=== PATIENT | male | born 1985 | race African-American/Black ===

== ENCOUNTER 2020-10-09 07:00 | Emergency (ER) | payer MEDICAID ==
[~2020-10-09] VITALS: Ht 182.9 cm; Wt 73.0 kg
[2020-10-09] MEDS ORDERED: MORPHINE SULFATE 2 MG/ML CPJ (NOT FOR IM USE) IV ONE (07:45)
[2020-10-09] MEDS ORDERED: ACETAMINOPHEN 325MG TABLET PO ONE (07:45)
[2020-10-09] MEDS ORDERED: ONDANSETRON HCL 4MG/2ML INJ IV ONE (08:00)
[2020-10-09 09:07] LABS: BASOPHILS % 0.3 % (0.0-2.0); EOSINOPHILS % 0.1 % (0.0-5.0); HEMATOCRIT. 37.2 % (42.0-52.0); LYMPHOCYTES % 12.8 % (20.0-50.0); MEAN CORPUSCULAR HEMOGLOBIN 31.8 pg (28.0-32.0); MEAN CORPUSCULAR VOLUME 91.3 fL (80.0-94.0); MEAN PLATELET VOLUME 8.4 fl (7.4-10.4); MONOCYTES % 10.5 % (2.0-8.0); NEUTROPHILS % 76.3 % (40.0-76.0); PLATELET 270 x1000/uL (130-400); RED BLOOD CELL COUNT 4.08 mill/uL (4.7-6.1); RED CELL DISTRIBUTION WIDTH 13.4 % (11.6-14.6)
[2020-10-09 09:08] LABS: CHLORIDE 102 mEq/L (98-107)
[2020-10-09 09:16] LABS: INR 1.6; PROTHROMBIN TIME 16.5 sec (9.6-11.0)
[2020-10-09] MEDS ORDERED: HYDROCODONE/ACETAMINOPHEN 5/325MG TABLET PO ONE (09:30)
[2020-10-09] MEDS ORDERED: IOHEXOL-300 100 ML BOTTLE ONE (10:12)
[2020-10-09 11:17] VITALS: BP 111/65
== END 2020-10-09 11:39 | disposition home or self-care (01) ==
LOC: ER 07:25
DX: S22.42XA Multiple fractures of ribs, left side, initial encounter for closed fracture (principal); S27.9XXA Injury of unspecified intrathoracic organ, initial encounter; S00.83XA Contusion of other part of head, initial encounter; S50.01XA Contusion of right elbow, initial encounter; F17.200 Nicotine dependence, unspecified, uncomplicated; R10.84 Generalized abdominal pain; R42 Dizziness and giddiness; Y04.0XXA Assault by unarmed brawl or fight, initial encounter; Y93.89 Activity, other specified; Y92.89 Other specified places as the place of occurrence of the external cause; Y99.8 Other external cause status
CPT/HCPCS: 36415; 70450; 70486; 71101; 74177; 80053; 83690; 85025; 85610; 99285; Q9967

== ENCOUNTER 2021-01-23 08:50 | Emergency (ER) | payer SELFPAY ==
[~2021-01-23] VITALS: Ht 182.9 cm; Wt 72.0 kg
[2021-01-23 08:56] VITALS: BP 109/46
== END 2021-01-23 09:55 | disposition home or self-care (01) ==
LOC: ER 08:50 → EDSEX 08:50 → ER 09:55
DX: Z48.02 Encounter for removal of sutures (principal)
CPT/HCPCS: 99281; Z7610

== ENCOUNTER 2021-07-27 11:48 | Emergency (ER) | payer SELFPAY ==
[~2021-07-27] VITALS: Ht 182.9 cm; Wt 73.0 kg
[2021-07-27] MEDS ORDERED: ACETAMINOPHEN 325MG TABLET PO ONE (12:15)
[2021-07-27] MEDS ORDERED: IBUPROFEN 600MG TABLET PO ONE (12:15)
[2021-07-27] MEDS ORDERED: IBUP-2028 MT (13:18)
[2021-07-27] MEDS ORDERED: ACET-2708 MT (13:18)
[2021-07-27 13:51] VITALS: BP 135/86
== END 2021-07-27 13:52 | disposition home or self-care (01) ==
LOC: ER 11:53
DX: S22.32XA Fracture of one rib, left side, initial encounter for closed fracture (principal); S00.212A Abrasion of left eyelid and periocular area, initial encounter; Y04.0XXA Assault by unarmed brawl or fight, initial encounter; Y93.89 Activity, other specified; Y92.89 Other specified places as the place of occurrence of the external cause
CPT/HCPCS: 71101; 99283

== ENCOUNTER 2021-12-18 13:55 | Emergency (ER) | payer MEDICAID ==
[~2021-12-18] VITALS: Ht 182.9 cm; Wt 73.0 kg
[~2021-12-18 13:55] MED LIST: ACET-2708 MT; IBUP-2028 MT
[2021-12-18] MEDS ORDERED: HYDROCODONE/ACETAMINOPHEN 5/325MG TABLET PO ONE (14:30)
[2021-12-18] MEDS ORDERED: LIDO1ADH5 TP (16:21)
[2021-12-18] MEDS ORDERED: HYDR-4001 MT (16:21)
[2021-12-18 16:30] VITALS: BP 121/61
== END 2021-12-18 16:35 | disposition home or self-care (01) ==
LOC: ER 13:55
DX: S22.31XA Fracture of one rib, right side, initial encounter for closed fracture (principal); W01.190A Fall on same level from slipping, tripping and stumbling with subsequent striking against furniture, initial encounter; Y93.89 Activity, other specified; Y92.018 Other place in single-family (private) house as the place of occurrence of the external cause
CPT/HCPCS: 71101; 99283